=== PATIENT | male | born 1985 | race Caucasian/White ===

== ENCOUNTER 2017-05-26 07:26 | Emergency (ER) | payer BC ==
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
[2017-05-26 08:01] LABS: Urine Bilirubin 1 mg/dl (NEGATIVE); Urine Blood Negative /ul (NEGATIVE); Urine Ketone Negative (NEGATIVE); Urine Nitrite Negative (NEGATIVE); Urine Protein 15 mg/dL (NEGATIVE); Urine Specific Gravity 1.025 SP.GR. (1.005-1.030); Urine Urobilinogen Normal (NORMAL); Urine pH 5.5 pH (5.0-7.0)
[2017-05-26 08:09] LABS: Urine Appearance Clear; Urine Bacteria None Seen; Urine Color Dark Yellow; Urine RBC None Seen /hpf (0-5); Urine WBC None Seen /hpf (0-5)
[2017-05-26 08:43] LABS: Hematocrit 40.7 % (42.0-52.0); Hemoglobin 14.6 gm/dL (13.5-18.0); Mean Cell Volume 88.5 fl (78-100); Mean Corpuscular Hemoglobin 31.7 pg (27-31); Mean Corpuscular Hgb Conc 35.9 g/dl (32-36); Mean Platelet Volume 8.4 fl (6.0-9.5); Neutrophil # 8.6 K/mm3 (1.3-6.0); Neutrophil % 73.5 % (42-75.0); Platelet Count 224 K/mm3 (150-450); Red Cell Distribution Width 12.4 % (11.5-14.0); White Blood Count 11.7 K/mm3 (4.0-10.5)
[2017-05-26 08:46] VITALS: BP 134/84
== END 2017-05-26 09:29 | disposition home or self-care (01) ==
LOC: ER 07:26
DX: S60.511A Abrasion of right hand, initial encounter (principal); S63.501A Unspecified sprain of right wrist, initial encounter; S13.9XXA Sprain of joints and ligaments of unspecified parts of neck, initial encounter; S33.5XXA Sprain of ligaments of lumbar spine, initial encounter; V29.9XXA Motorcycle rider (driver) (passenger) injured in unspecified traffic accident, initial encounter

== ENCOUNTER 2017-09-09 01:00 | Emergency (ER) | payer BC ==
[2017-09-09] MEDS ORDERED: NORMAL SALINE 1,000 ML IV ONE ×2 (01:12→02:14)
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
[2017-09-09 01:21] LABS: Hemoglobin 16.2 gm/dL (13.5-18.0); Mean Cell Volume 87.9 fl (78-100); Mean Corpuscular Hemoglobin 31.6 pg (27-31); Mean Platelet Volume 8.3 fl (6.0-9.5); Neutrophil # 3.6 K/mm3 (1.3-6.0); Neutrophil % 57.2 % (42-75.0); Platelet Count 293 K/mm3 (150-450); Red Blood Count 5.12 M/mm3 (4.7-6.0); Red Cell Distribution Width 12.1 % (11.5-14.0); White Blood Count 6.2 K/mm3 (4.0-10.5)
[2017-09-09 01:36] LABS: Albumin * 4.6 gm/dl (3.4-5.0); Anion Gap 18.4 mmol/L (6.8-13.8); BUN/Creatinine Ratio 18.7 (9.0-21.6); Bilirubin, Total 0.3 mg/dL (0.0-1.1); Ca. Corrected For Albumin 8.1 mg/dL (8.4-10.2); Calcium * 8.9 mg/dL (7.9-10.9); Carbon Dioxide 23.3 mmol/L (24-32.6); Potassium 3.7 mmol/L (3.4-4.6); Total Protein 8.5 gm/dL (6.2-8.2)
[2017-09-09 09:06] VITALS: BP 122/79
== END 2017-09-09 08:50 | disposition home or self-care (01) ==
LOC: ER 01:00
DX: S00.83XA Contusion of other part of head, initial encounter (principal); X58.XXXA Exposure to other specified factors, initial encounter; Y93.9 Activity, unspecified; Y92.008 Other place in unspecified non-institutional (private) residence as the place of occurrence of the external cause
CPT/HCPCS: 36415; 70450; 72125; 73110; 80053; 85025; 99284; G0481